=== PATIENT | female | born 1965 | race Hispanic/Latino ===

== ENCOUNTER 2019-01-08 01:38 | Emergency (ER) | payer OTHER ==
[2019-01-08 03:10] LABS: Alanine Aminotransferase 9 units/L (7-56); Albumin 4.1 g/dL (3.9-5); BUN/Creatinine Ratio 25; Blood Urea Nitrogen 15 mg/dL (7-17); Calcium 8.8 mg/dL (8.4-10.2); Hemolysis Index 2
[2019-01-08 03:12] LABS: Basophils # (Auto) 0.1 K/mm3 (0.0-0.1); Basophils % (Auto) 0.9 % (0.0-1.8); Eosinophils % (Auto) 0.2 % (0.0-4.3); Hematocrit 41.4 % (30.3-42.9); Hemoglobin 13.8 gm/dl (10.1-14.3); Lymphocytes % (Auto) 10.2 % (13.4-35.0); Mean Corpuscular HGB Conc 33 % (30-34); Mean Corpuscular Volume 85 fl (79-97); Monocytes # (Auto) 0.4 K/mm3 (0.0-0.8); Monocytes % (Auto) 4.3 % (0.0-7.3); Platelet Count 297 K/mm3 (140-440); Red Blood Count 4.86 M/mm3 (3.65-5.03); Red Cell Distribution Width 14.4 % (13.2-15.2)
--- NOTE | 2019-01-08 03:40 | Emergency Department Report ---
ED General Adult HPI - General Chief complaint: Seizure Stated complaint: SEIZURE/HEADACHE Time Seen by Provider: 01/08/19 03:37 Source: patient, EMS Mode of arrival: Stretcher Limitations: No Limitations - History of Present Illness Initial comments: 53-year-old female with past medical history migraine headaches presents after called EMS and the patient was having a seizure. When EMS arrival patient was awake. states that her seizure activity lasted for approximately a minute. Patient had no urinary incontinence. Patient per her had no head trauma. Patient did not bite her tongue. Patient states she takes Venlexafine for migraines. states that patient was rolling around the floor complaining that her head was hurting. Patient no focal weakness or slurred speech. Severity scale (0 -10): 10 - Related Data Previous Rx's Medication Instructions Recorded Last Taken Type levETIRAcetam [Keppra] 500 mg PO Q8HR #21 tablet 01/08/19 Unknown Rx traMADol [Ultram] 50 mg PO Q6HR PRN #20 tablet 01/08/19 Unknown Rx Allergies Allergy/AdvReac Type Severity Reaction Status Date / Time No Known Allergies Allergy Unverified 01/08/19 02:08 ED Review of Systems ROS: Stated complaint: SEIZURE/HEADACHE Other details as noted in HPI Constitutional: denies: chills, fever Eyes: denies: eye pain, eye discharge, vision change ENT: denies: ear pain, throat pain Respiratory: denies: cough, shortness of breath, wheezing Cardiovascular: denies: chest pain, palpitations Endocrine: no symptoms reported Gastrointestinal: denies: abdominal pain, nausea, diarrhea Genitourinary: denies: urgency, dysuria, discharge Musculoskeletal: denies: back pain, joint swelling, arthralgia Skin: denies: rash, lesions Neurological: headache, other (seizures; headache). denies: weakness, paresthesias Psychiatric: denies: anxiety, depression Hematological/Lymphatic: denies: easy bleeding, easy bruising ED Past Medical Hx - Past Medical History Previous Medical History?: Yes Hx Diabetes: Yes Hx Headaches / Migraines: Yes Hx Seizures: Yes - Surgical History Past Surgical History?: Yes Additional Surgical History: tonsil remove, back s/p - Social History Smoking Status: Former Smoker Substance Use Type: None - Medications Home Medications: Home Medications Medication Instructions Recorded Confirmed Last Taken Type levETIRAcetam [Keppra] 500 mg PO Q8HR #21 tablet 01/08/19 Unknown Rx traMADol [Ultram] 50 mg PO Q6HR PRN #20 tablet 01/08/19 Unknown Rx ED Physical Exam - General Limitations: No Limitations General appearance: alert, other (minimal distress;) - Head Head exam: Present: atraumatic, normocephalic - Eye Eye exam: Present: normal appearance - ENT ENT exam: Present: mucous membranes dry - Neck Neck exam: Present: normal inspection - Respiratory Respiratory exam: Present: normal lung sounds bilaterally. Absent: respiratory distress - Cardiovascular Cardiovascular Exam: Present: regular rate, normal rhythm. Absent: systolic murmur, diastolic murmur, rubs, gallop - GI/Abdominal GI/Abdominal exam: Present: soft, normal bowel sounds - Extremities Exam Extremities exam: Present: normal inspection - Back Exam Back exam: Present: normal inspection - Neurological Exam Neurological exam: Present: alert, oriented X3, CN II-XII intact. Absent: motor sensory deficit - Psychiatric Psychiatric exam: Present: normal affect, normal mood - Skin Skin exam: Present: warm, dry, intact, normal color. Absent: rash ED Course Vital Signs 01/08/19 01/08/19 01/08/19 02:00 02:08 02:25 Temperature 97 F L Pulse Rate 106 H 109 H Respiratory 16 19 16 Rate Blood Pressure 145/104 145/104 Blood Pressure 145/109 [Left] O2 Sat by Pulse 96 98 100 Oximetry 01/08/19 01/08/19 01/08/19 02:30 03:00 03:30 Temperature Pulse Rate 109 H 99 H 103 H Respiratory 16 18 19 Rate Blood Pressure 145/67 135/64 151/73 Blood Pressure [Left] O2 Sat by Pulse 100 97 98 Oximetry ED Medical Decision Making - Lab Data Result diagrams: 01/08/19 02:19 01/08/19 02:19 - Medical Decision Making Patient had a CT of the head which shows no evidence of acute pathology. Gabriella ent has a normal lab profile as well. Patient given Keppra therapy for seizure prophylaxis. Patient also received morphine therapy IV which helped control her pain. Patient has had no subsequent seizure activity will be discharged to follow-up with neurology as an outpatient. - Differential Diagnosis electrolyte abnormality; anemia; dehydration; Critical care attestation.: If time is entered above; I have spent that time in minutes in the direct care of this critically ill patient, excluding procedure time. ED Disposition Clinical Impression: Seizure, Headache Disposition: DC- TO HOME OR SELFCARE Is pt being admited?: No Does the pt Need Aspirin: No Condition: Stable Instructions: Epilepsy (ED), Migraine Headache (ED) Prescriptions: levETIRAcetam [Keppra] 500 mg PO Q8HR #21 tablet traMADol [Ultram] 50 mg PO Q6HR PRN #20 tablet PRN Reason: Pain Time of Disposition: 04:47 Print Language: SWAZI
[2019-01-08] MEDS ORDERED: KEPPRA 1,000 MG/NS 0.75% 100ML 1,000 MG/100 ML BAG IV ONE (03:48)
[2019-01-08 04:24] VITALS: BP 151/73
--- NOTE | 2019-01-08 04:28 | Cat Scan Report ---
PROCEDURE: CT HEAD/BRAIN WO CON TECHNIQUE: CT imaging is obtained through the brain without contrast HISTORY: headache; seizure COMPARISONS: None FINDINGS: Examination is compromised by streak artifact. The ventricles, cisterns and sulci are within normal l imits. No intra parenchymal or extra-axial mass, hemorrhage, or mass effect. Martinez and white-matter d ifferentiation is within normal limits for patient age. Normal spherical shape of the globes. No significant abnormality involving the imaged portions of th e paranasal sinuses and mastoid air cells. No skull or facial fracture visualized. IMPRESSION: No acute intracranial abnormality. Consider follow-up MRI for more sensitive and specific evaluation as warranted. This document is electronically signed by Alfonso Waggoner MD., January 08 2019 04:26:33 AM ET
[2019-01-08] MEDS ORDERED: PERCOCET 5/325 PO STA (05:03)
[2019-01-08] MEDS ORDERED: PERCOCET 5/325 ONE (05:06)
== END 2019-01-08 05:10 | disposition home or self-care (01) ==
LOC: ED 01:38
DX: G40.909 Epilepsy, unspecified, not intractable, without status epilepticus (principal); G43.909 Migraine, unspecified, not intractable, without status migrainosus; E11.9 Type 2 diabetes mellitus without complications
CPT/HCPCS: 36415; 70450; 80053; 85025; 96374; 99284; J1953